=== PATIENT | male | born 1990 | race Caucasian/White ===

== ENCOUNTER 2016-04-28 20:42 | Emergency (ER) | payer OTHER ==
[~2016-04-28] VITALS: Ht 182.9 cm; Wt 95.2 kg
[~2016-04-28 20:42] MED LIST: ATIVAN0.5 M1 PO; ATIVAN1 MG PO; FLO4 PO; FOL1 PO; LACTULOSE10 GM/152 PO; LOPRESSOR50 MG PO; METOPROLOL SUCC50 M1 PO; METOPROLOL TART50 MG; NOR10T PO; NORCO1 TA2 PO; THI100 PO; ZOF4 PO
[2016-04-28 21:35] LABS: BASOPHIL % 0.5 % (0-2); PLATELET COUNT 227 x10^3mcL (130-400)
[2016-04-28 21:37] LABS: RED CELL DISTRIBUTION WIDTH 14.7 % (11.5-14.5)
[2016-04-28 21:40] LABS: CALCIUM 8.3 mg/dL (8.5-10.1); CARBON DIOXIDE 27.2 mmol/L (21-32); CHLORIDE SERUM 107 mmol/L (98-107); CREATININE SERUM 0.5 mg/dL (0.7-1.3); GFR1 > 60 mL/min; GLUCOSE SERUM 96 mg/dL (74-106); POTASSIUM SERUM 3.3 mmol/L (3.5-5.1); SODIUM SERUM 142 mmol/L (136-145)
[2016-04-28 21:46] LABS: ALBUMIN 3.6 g/dL (3.4-5.0); ALKALINE PHOSPHATASE 168 U/L (46-116); ALT/SGPT 75 U/L (16-63); AMYLASE 49 U/L (25-115); AST/SGOT 96 U/L (15-37); BILIRUBIN TOTAL 0.34 mg/dL (0.20-1.00); LIPASE 85 IU/L (73-393); TOTAL PROTEIN, SERUM 7.2 g/dL (6.4-8.2)
[2016-04-28 22:29] VITALS: BP 132/80
== END 2016-04-28 22:29 | disposition home or self-care (01) ==
LOC: ED 20:42
PROVIDERS: Emergency Medicine
DX: K29.20 Alcoholic gastritis without bleeding (principal); M54.5 Low back pain
CPT/HCPCS: G0480; J2405; J3010; J7030; Q0092

== ENCOUNTER 2016-10-01 13:58 | Emergency (ER) | payer OTHER ==
[~2016-10-01] VITALS: Ht 182.9 cm; Wt 96.2 kg
[2016-10-01 16:07] VITALS: BP 137/89
== END 2016-10-01 16:07 | disposition home or self-care (01) ==
LOC: ED 13:58
DX: M54.16 Radiculopathy, lumbar region (principal); I10 Essential (primary) hypertension; F10.20 Alcohol dependence, uncomplicated
CPT/HCPCS: J1885